=== PATIENT | male | born 1995 | race Caucasian/White ===

== ENCOUNTER 2025-02-19 15:50 | Emergency (ER) | payer OTHER, SELFPAY ==
[2025-02-19 15:50] VITALS: BP 98/86; PULSE 81; RESP 18; TEMP 37; O2SAT 98; BMI 26.4
--- NOTE | 2025-02-19 16:16 | EX.ED.UPPERE ---
HPI <MARCELINO Kirkpatrick - Last Filed: 02/19/25 17:25> History of Present Illness Chief Complaint: Laceration Narrative Narrative: 29-year-old male presents with a right hand laceration that occurred at work last night. He works as [employer] in [employer] and was cleaning a wine glass when the stone broke off and punctured his right palm. He applied a bandage at work and lives in [place] so presents here for evaluation. Last tetanus unknown. He denies weakness or numbness or tingling. PFSH <MARCELINO Kirkpatrick - Last Filed: 02/19/25 17:25> [facility] Home Medications Medication Instructions Recorded Last Taken Type cyclobenzaprine 10 mg tablet 10 mg PO TID PRN Muscle Spasm ##20 09/23/14 Unknown Rx naproxen 500 mg tablet 500 mg PO BID #20 tabs 09/23/14 Unknown Rx Allergy/AdvReac Type Severity Reaction Status Date / Time No Known Allergies Allergy Verified 02/19/25 15:52 Social History Smoking Status: Current every day smoker tobacco type: e-cigarettes ROS <MARCELINO Kirkpatrick - Last Filed: 02/19/25 17:25> ROS ED ROS Narrative Neuro: Negative for motor/sensory dysfunction. Skin: Positive for wound. EXAM <MARCELINO Kirkpatrick Last Filed: 02/19/25 17:25> Physical Exam Narrative Exam Narrative: CONST: Patient sitting in no acute distress. SKIN: 2.5 cm jagged laceration on the proximal palm of the right hand with mild bruising around it. No significant swelling. No redness, fluctuance, crepitus or drainage. No bony tenderness of the wrist or hand. Full range of motion, normal motor and sensory function in median radial and ulnar distributions, 2+ radial pulse and brisk cap refill. NEURO: Alert and answering questions appropriately. PSYCH: Normal affect. Const Vital Signs: 02/19/25 15:50 Temperature 98.6 F Temperature Source Oral Pulse Rate 81 Respiratory Rate 18 Blood Pressure 98/86 H Blood Pressure Mean 90 Pulse Ox 98 Oxygen Delivery Method Room Air MDM <MARCELINO Kirkpatrick - Last Filed: 02/19/25 17:25> MDM MDM Narrative Medical decision making narrative: Patient has a small right palm laceration from a 1 glass that broke at work. It is not gaping and does not require any closure. He has full range of motion and is neurovascularly intact. X-rays negative. It was cleansed and dressed with bacitracin and a bandage and he was given a tetanus update and wound care instructions. He was discharged in stable condition. I have personally performed a face to face assessment of the patient and have reviewed the ABDIRIZAK Note. I performed a substantive portion of the visit including all aspects of the following. My king findings include: History is laceration palm right hand. Is right-hand dominant. This occurred last evening. This is work-related. Exam is there is a small jagged laceration palm of the right hand. There is no evidence of infection i.e. erythema, warmth, induration or fluctuance. There is no lymphangitis. There is no epitrochlear or axillary lymphadenopathy. Medical Decison Making x-ray was obtained to evaluate for foreign body. Other additions or changes: [None] Radiography Diagnostic Testing: ED attending interpretation of right hand shows no fracture or dislocation, no foreign body. <Dr. Kyle Perez MD - Last Filed: 02/19/25 17:31> [facility] [place] MDM Narrative Medical decision making narrative: I have personally performed a face to face assessment of the patient and have reviewed the ABDIRIZAK Note. I performed a substantive portion of the visit including all aspects of the following. My king findings include: History is laceration palm right hand. Is right-hand dominant. This occurred last evening. This is work-related. Exam is there is a small jagged laceration palm of the right hand. There is no evidence of infection i.e. erythema, warmth, induration or fluctuance. There is no lymphangitis. There is no epitrochlear or axillary lymphadenopathy. Medical Decison Making x-ray was obtained to evaluate for foreign body. Other additions or changes: [None] Radiography Chest X-Ray - ED: Read by ED Physician (Three-view x-ray of the right hand was independently reviewed and interpreted by me at 1655 as negative for any acute abnormality and specifically no evidence of foreign body.) Discharge Plan Triage Chief Complaint: Laceration ED Midlevel Provider: Apurva Arriaga ED Provider: Kyle Perez Dx/Rx/DC Orders Clinical Impression: Laceration of right hand Instructions: ED Laceration Superficial No Stitch Prescriptions: No Action cyclobenzaprine 10 MG tablet 10 mg PO TID PRN (Reason: Muscle Spasm) Qty: 20 0RF naproxen 500 MG tablet 500 mg PO BID Qty: 20 0RF Primary Care Provider: Care Physician,No Primary Referrals: [facility] [Provider Group] Care Physician,No Primary [Primary Care Provider] - Activity Restrictions/Additional Instructions: Clean once daily with soap and water, pat dry, apply bacitracin and bandage this should heal on its own but if you develop any signs of infection like redness, swelling, pus, fever please be seen immediately. Print Language: Israeli Disposition Disposition: Home, Self Care Discharge Date/Time: 02/19/25 16:58
--- NOTE | 2025-02-19 16:22 | RAD_ITS ---
PROCEDURE: RIGHT HAND MIN 3 VIEWS 02/19/2025 REASON FOR EXAM: PAIN TECHNIQUE: Frontal lateral and oblique radiographs of the right hand COMPARISON: None. FINDINGS: No acute fracture or dislocation. Alignment is anatomic. Preserved joint spaces. No aggressive osseous lesion. No appreciable soft tissue swelling or radiopaque foreign body. RAD/Hand Min 3 Views IMPRESSION: No acute fracture or dislocation. No radiopaque foreign body. Reading Location: [id number]
[2025-02-19 16:52] VITALS: BP 115/80; PULSE 67; RESP 18; TEMP 37; O2SAT 100
== END 2025-02-19 16:58 | disposition home or self-care (01) ==
LOC: ED 16:50
PROVIDERS: Emergency Provider Emergency Medicine; Visit Provider Emergency Medicine
DX: S61.411A Laceration without foreign body of right hand, initial encounter (principal); W25.XXXA Contact with sharp glass, initial encounter; Y99.0 Civilian activity done for income or pay; Y92.89 Other specified places as the place of occurrence of the external cause; Y93.89 Activity, other specified; Z23 Encounter for immunization
CPT/HCPCS: 73130; 90471; 90715; 99282